=== PATIENT | male | born 1980 | race Two or more races ===

== ENCOUNTER 2017-08-05 14:36 | Emergency (ER) | payer SELFPAY ==
[~2017-08-05] VITALS: Ht 180.3 cm; Wt 90.7 kg
[2017-08-05 14:39] VITALS: BP 130/90
--- NOTE | 2017-08-05 14:56 | PHYS DOC ---
Adult General Chief Complaint Chief Complaint: ALCOHOL INTOXICATION HPI HPI Patient is a 36 year old M who presents with alcohol abuse. Patient had passed out on his 's couch drunk and woke up to her saying that he had a restraining order and neither she was going to call the police or an ambulance. At that time the patient shows an ambulance however has no medical complaints at this time. Patient is refusing all medical treatments. Patient is refusing lab work. Patient has no complaints. Patient does admit to drinking heavily. Patient states he does have alcohol problem. Patient did allow the tech to get a EKG. Patient states he will call a friend to come pick him up. At this time the patient has medical decision-making capacity allowing him to refuse medical care at this time. Review of Systems Review of Systems GEN: Denies fevers, chills, sweats HEENT: Denies blurred vision, sore throat CV: Denies chest pain RESP: Denies shortness of air, cough GI: Denies n/v/d NEURO: Denies confusion, dizziness MSK: Denies weakness, joint pain/swelling Allergies Allergies Allergies Coded Allergies Type Severity Reaction Last Updated Verified No Known Drug Allergies 08/05/17 No Physical Exam Physical Exam GEN.: No apparent distress. Alert and oriented. HEENT: Head is normocephalic, atraumatic NECK: Supple. LUNGS: CTAB. HEART: RRR, S1, S2 present. Peripheral pulses intact ABDOMEN: Soft, nontender. Positive bowel sounds. EXTREMITIES: Without any cyanosis. NEUROLOGIC: Normal speech, normal tone PSYCHIATRIC: Normal affect, normal mood. SKIN: No ulcerations Current Patient Data Vital Signs Vital Signs Date Time Temp Pulse Resp B/P (MAP) Pulse Ox O2 Delivery O2 Flow Rate FiO2 08/05/17 14:39 101 130/90 (103) 96 Room Air EKG EKG 1442: EKG shows normal sinus rhythm rate of 99 no STEMI[] Radiology/Procedures Radiology/Procedures [] Course & Med Decision Making Course & Med Decision Making Pertinent Labs and Imaging studies reviewed. (See chart for details) ED course: Patient was seen and examined emergency room patient is refusing lab work and has medical decision-making capacity 1754: After multiple times she cannot get a friend to come pick him up therefore he is taking a cab at this time the patient is a alert and oriented 3 and has medical decision making capacity MDM: After reviewing the chart, CC/HPI/PMH, physical exam, the patient has medical decision-making capacity and has a right to refuse treatment at this time. Patient was observed and her emergency room for approximately 3 hours while he was trying to find a ride. Patient was fed. Patient remained stable during the time in the emergency room. Patient was unable to find a ride therefore is calling for taxicab. Additional verbal discharge instructions were provided to the patient and that if symptoms get worse or any new symptoms arise that are worrisome to the patient he is to return to the emergency room immediately [] Dragon Disclaimer Dragon Disclaimer This electronic medical record was generated, in whole or in part, using a voice recognition dictation system. Departure Departure Impression: Primary Impression: Alcohol abuse Disposition: 01 HOME, SELF-CARE Condition: STABLE Patient Instructions: Alcohol Problems Additional Instructions: Please follow up with your family doctor next one to 2 days and return if symptoms increase JOVANNI CARRIZALES DO Aug 05, 2017 14:56
--- NOTE | 2017-08-05 15:54 | EKG ---
[facility] [address] [place] [address] Test Date: 2017-08-05 Test Time: 14:37:16 Pat Name: RENY IZAGUIRRE Department: Room: Gender: M Resource Room Teacher: : 1980 Requested By: JOVANNI CARRIZALES Order Number: [id number] Reading MD: Measurements Intervals [place] Rate: 99 P: 38 [place]: 132 QRS: 36 QRSD: 88 T: 26 QT: 340 QTc: 442 Interpretive Statements SINUS RHYTHM QRS(T) CONTOUR ABNORMALITY CANNOT RULE OUT ANTEROLATERAL MYOCARDIAL DAMAGE RI6.01 Unconfirmed report No previous ECG available for comparison
== END 2017-08-05 18:07 | disposition home or self-care (01) ==
LOC: ER 14:36
DX: F10.10 Alcohol abuse, uncomplicated (principal)
CPT/HCPCS: 93005; 99283-25

== ENCOUNTER 2020-07-13 18:40 | Inpatient (IN) | payer OTHER ==
[~2020-07-13] VITALS: Ht 175.3 cm; Wt 102.7 kg
[2020-07-13 18:35] VITALS: BP 155/105
[~2020-07-13 18:40] MED LIST: LORA-434 PO
--- NOTE | 2020-07-13 19:10 | PDOC1 ---
History and Physical Date of Admission Date of Admission DATE: 07/13/20 TIME: 19:10 Identification/Chief Complaint Chief Complaint seen in er in [facility] with acute alcohol withdrawal, has been on a 2 week binge, now decided to stop and seek treatment. HGB STABLE AT 12.9 AT TIME OF TRANSFER Past Medical History Past Medical History severe alcohol abuse x yrs, depression Cardiovascular: HTN Psych: Addictions Rheumatologic: No pertinent hx Family History Family History: Alcohol Abuse, Hypertension Social History Smoke: <1 pack per day ALCOHOL: heavy Drugs: Marijuana Current Medications Current Medications Active Scripts Active Ativan (Lorazepam) 1 Mg Tablet 1 Mg PO BID PRN Allergies Allergies: Coded Allergies: No Known Drug Allergies (Unverified , 08/05/17) ROS Review of System Constitutional: Denies fever or chills [] Eyes: Denies change in visual acuity, redness, or eye pain [] HENT: Denies nasal congestion or sore throat [] Respiratory: Denies cough or shortness of breath [] Cardiovascular: No additional information not addressed in HPI [] GI: Denies abdominal pain, nausea, vomiting, bloody stools or diarrhea [] : Denies dysuria or hematuria [] Musculoskeletal: Denies back pain or joint pain [] Integument: Denies rash or skin lesions [] Neurologic: Denies headache, focal weakness or sensory changes [] Endocrine: Denies polyuria or polydipsia [] 14 PT systems were reviewed and found to be within normal limits, except as documented General: YES: Fatigue, Malaise PSYCHOLOGICAL ROS: YES: Anxiety, Concentration difficultie Hematological and Lymphatic: YES: Bleeding Problems Gastrointestinal: Yes Nausea, Yes Vomiting Skin: No Dry Skin, No Eczema, No Hair Changes, No Lumps, No Mole Changes, No Mottling, No Nail Changes, No Pruritus, No Rash, No Skin Lesion Changes, No Other, No Acne Physical Exam Physical Exam Constitutional: Well developed, well nourished, mild acute distress, non-toxic appearance. [] HENT: Normocephalic, atraumatic, bilateral external ears normal, oropharynx m oist, no oral exudates, nose normal. [] Eyes: PERRLA, EOMI, conjunctiva normal, no discharge. [] Neck: Normal range of motion, no tenderness, supple, no stridor. [] Cardiovascular:Heart rate regular rhythm, no murmur [] Lungs & Thorax: Bilateral breath sounds clear to auscultation [] Abdomen: Bowel sounds normal, soft, no tenderness, no masses, no pulsatile masses. [] Skin: Warm, dry, no erythema, no rash. [] Back: No tenderness, no CVA tenderness. [] Extremities: No tenderness, no cyanosis, no clubbing, ROM intact, no edema. [] Neurologic: Alert and oriented x2, obvious intoxication and slurring some words General: Alert, Oriented X3, Cooperative, mild distress HEENT: Atraumatic Lungs: Clear to auscultation, Normal air movement Heart: RRR, no thrills Breasts: Not examined Abdomen: Normal bowel sounds, Soft, No tenderness Rectal Exam: not examined Extremities: No cyanosis, No edema Neuro: Normal speech, Normal tone, Sensation intact, Cranial nerves 3-12 NL VTE Prophylaxis Ordered VTE Prophylaxis Devices: Yes VTE Pharmacological Prophylaxi: Contraindicated Assessment/Plan Assessment/Plan Impression: ACUTE upper GI BLEED, prob janene-cortez tear Alcohol intoxication HX SEVERE ALCOHOL ABUSE morbid obesity plan ADMIT NPO GI CONSULT, NOTIFIED BY [facility] 07/13 PROTONIX DRIP H/H Q 6 HRS IV FLUID SUPPORT BANANA BAG DAILY SS CONSULT PSYCH CONSULT WA PROTOCOL Justicifation of Admission Dx: Justifications for Admission: Justification of Admission Dx: Yes Comments: ACUTE UPPER GI BLEEDING PARESH BOSWELL MD Jul 13, 2020 19:10
[2020-07-13] MEDS ORDERED: LORazepam 0.5 MG TABLET PO PRN (19:15)
[2020-07-13] MEDS ORDERED: DOCUSATE SODIUM 100 MG CAPSULE. PO PRN (19:15)
[2020-07-13] MEDS ORDERED: ONDANSETRON PF 4 MG/2 ML VIAL. IV PRN (19:15)
[2020-07-13] MEDS ORDERED: ALBUTEROL SULFATE 2.5 MG/3 ML NEBU. NEB PRN (19:15)
[2020-07-13] MEDS ORDERED: ACETAMINOPHEN 650 MG SUPP.RECT. PR PRN (19:15)
[2020-07-13] MEDS ORDERED: 0.9 % SODIUM CHLORIDE 10 ML DISP.SYRIN. IV PRN (19:15)
[2020-07-13] MEDS ORDERED: HALOPERIDOL LACTATE 5 MG/ML VIAL. IVP PRN (19:30)
[2020-07-13] MEDS ORDERED: diphenhydrAMINE 50 MG/ML VIAL IVP PRN (19:30)
[2020-07-13] MEDS: IV NORMAL SALINE 1000ML BAG 1,000 ML IV SCH (19:38)
[2020-07-13] MEDS: PANTOPRAZOLE SODIUM IV DRIP 80 MG in IV NORMAL SALINE 100ML 100 ML IV SCH (19:38)
[2020-07-13] MEDS ORDERED: MULTIVIT INFUSN,ADULT 4,VIT K 10 ML, THIAMINE INJ 100 MG, FOLIC ACID INJ 1 MG in IV NOR... IV ONE (20:00)
--- NOTE | 2020-07-13 20:00 | NUR ---
PT ADMITTED FOR GI BLEED, PT APPEARS RESTLESS, ANXIOUS WITH SLIGHT TREMORS. DR BOSWELL CALLED FOR ADMISSION ORDERS. ASSESSMENT COMPLETE, ADMISSION PACKET GIVEN, ORIENTED TO UNIT AND POC WILL CONT TO MONITOR PT SAFETY AND STATUS. PMRN
[2020-07-13 23:00] VITALS: BP 165/86
[2020-07-14 01:00] LABS: BASO % 0 % (0-3); EOS % 0 % (0-3); HEMATOCRIT 34.1 % (39.0-53.0); HEMOGLOBIN 11.7 g/dL (13.0-17.5); LYMPH # 1.6 x10^3/uL (1.0-4.8); LYMPH % 22 % (24-48); MEAN CORPUSCULAR HEMOGLOBIN 29 pg (25-35); MEAN CORPUSCULAR HGB CONC 34 g/dL (31-37); MEAN CORPUSCULAR VOLUME 83 fL (79-100); MONO # 0.3 x10^3/uL (0.0-1.1); MONO % 4 % (0-9); NEUT # 5.3 x10^3/uL (1.8-7.7); NEUT % 74 % (31-73); PLATELET COUNT 97 x10^3/uL (140-400); RED BLOOD COUNT 4.09 x10^6/uL (4.30-5.70); RED CELL DISTRIBUTION WIDTH 14.9 % (11.5-14.5); WHITE BLOOD COUNT 7.1 x10^3/uL (4.0-11.0)
[2020-07-14 01:57] LABS: BARBITURATES NEG (NEG); BENZODIAZEPINES NEG (NEG); CANNABINOIDS NEG (NEG); COCAINE NEG (NEG); METHADONE NEG (NEG); OPIATES NEG (NEG); PHENCYCLIDINE NEG (NEG)
[2020-07-14 02:01] LABS: AMPHETAMINE/METHAMPHETAMINE NEG (NEG)
[2020-07-14] MEDS ORDERED: DIGOXIN IV 500 MCG/2 ML AMPUL. IV ONE (02:45)
[2020-07-14] MEDS: IV NORMAL SALINE 1000ML BAG 1,000 ML IV SCH ×4 (02:50→22:17)
[2020-07-14] MEDS: PANTOPRAZOLE SODIUM IV DRIP 80 MG in IV NORMAL SALINE 100ML 100 ML IV SCH ×3 (02:56→22:17)
[2020-07-14 03:00] VITALS: BP 156/84
[2020-07-14 07:00] VITALS: BP 154/93
[2020-07-14 07:54] LABS: BASO % 1 % (0-3); EOS % 0 % (0-3); HEMATOCRIT 33.7 % (39.0-53.0); HEMOGLOBIN 11.5 g/dL (13.0-17.5); LYMPH # 1.3 x10^3/uL (1.0-4.8); LYMPH % 24 % (24-48); MEAN CORPUSCULAR HEMOGLOBIN 28 pg (25-35); MEAN CORPUSCULAR HGB CONC 34 g/dL (31-37); MEAN CORPUSCULAR VOLUME 83 fL (79-100); MONO # 0.2 x10^3/uL (0.0-1.1); MONO % 4 % (0-9); NEUT # 3.9 x10^3/uL (1.8-7.7); NEUT % 71 % (31-73); PLATELET COUNT 87 x10^3/uL (140-400); RED BLOOD COUNT 4.06 x10^6/uL (4.30-5.70); RED CELL DISTRIBUTION WIDTH 14.7 % (11.5-14.5); WHITE BLOOD COUNT 5.5 x10^3/uL (4.0-11.0)
[2020-07-14 08:11] LABS: ALBUMIN 3.1 g/dL (3.4-5.0); ALBUMIN/GLOBULIN RATIO 0.9 (1.0-1.7); CALCIUM 8.1 mg/dL (8.5-10.1); CREATININE 1.3 mg/dL (0.7-1.3); GFR 62.1; TOTAL BILIRUBIN 1.2 mg/dL (0.2-1.0); TOTAL PROTEIN 6.4 g/dL (6.4-8.2)
[2020-07-14 08:17] LABS: POTASSIUM 2.8 mmol/L (3.5-5.1)
[2020-07-14] MEDS: POTASSIUM CHLORIDE 10MEQ 100 ML IV SCH ×4 (08:58→14:26)
--- NOTE | 2020-07-14 09:45 | PDOC2 ---
GI CONSULT Date of Service: DATE: 07/14/20 TIME: 09:45 Reason For Consult: acute UGIB HPI: HPI: 39 y/o male sent from [facility] ER, discussed w/ ER physician yesterday. Sick for a couple days w/ mid/right abd pain and n/v w/ dark reddish emesis x 1. Says brought on by drinking a lot of alcohol. Denies reflux/heartburn, dysphagia, diarrhea, constipation, hematochezia, melena, weight loss. No 'scopes in past. No GB, liver, pancreas, or PUD history. At [facility]: Hgb 12.9, plt 132, INR 1, BUN 9, Cr 1.5, bili 1.1, AST 145, ALT 88, Alk Phos 77, lipase 225, ETOH 24. CT w/ fatty liver and possible colitis/enteritis. PMH: PMH: denies FH: Family History: No pertinent hx (denies GI cancers) Social History: Smoke: No ALCOHOL: heavy ROS: GEN: Denies fevers, chills, sweats HEENT: Denies blurred vision, sore throat CV: Denies chest pain RESP: Denies shortness of air, cough GI: Per HPI : Denies hematuria, dysuria ENDO: Denies weight changes NEURO: Denies confusion, dizziness MSK: Denies weakness, joint pain/swelling SKIN: Denies jaundice, pruritus Vitals: Vitals: Vital Signs Date Time Temp Pulse Resp B/P (MAP) Pulse Ox O2 Delivery O2 Flow Rate FiO2 07/14/20 07:34 99 Room Air 07/14/20 07:00 98.0 88 18 154/93 (113) 98.0 Labs: Labs: Laboratory Tests Test 07/14/20 00:05 07/14/20 00:26 07/14/20 06:35 White Blood Count 7.1 x10^3/uL (4.0-11.0) 5.5 x10^3/uL (4.0-11.0) Red Blood Count 4.09 x10^6/uL (4.30-5.70) 4.06 x10^6/uL (4.30-5.70) Hemoglobin 11.7 g/dL (13.0-17.5) 11.5 g/dL (13.0-17.5) Hematocrit 34.1 % (39.0-53.0) 33.7 % (39.0-53.0) Mean Corpuscular Volume 83 fL (79-100) 83 fL (79-100) Mean Corpuscular Hemoglobin 29 pg (25-35) 28 pg (25-35) Mean Corpuscular Hemoglobin Concent 34 g/dL (31-37) 34 g/dL (31-37) Red Cell Distribution Width 14.9 % (11.5-14.5) 14.7 % (11.5-14.5) Platelet Count 97 x10^3/uL (140-400) 87 x10^3/uL (140-400) Neutrophils (%) (Auto) 74 % (31-73) 71 % (31-73) Lymphocytes (%) (Auto) 22 % (24-48) 24 % (24-48) Monocytes (%) (Auto) 4 % (0-9) 4 % (0-9) Eosinophils (%) (Auto) 0 % (0-3) 0 % (0-3) Basophils (%) (Auto) 0 % (0-3) 1 % (0-3) Neutrophils # (Auto) 5.3 x10^3/uL (1.8-7.7) 3.9 x10^3/uL (1.8-7.7) Lymphocytes # (Auto) 1.6 x10^3/uL (1.0-4.8) 1.3 x10^3/uL (1.0-4.8) Monocytes # (Auto) 0.3 x10^3/uL (0.0-1.1) 0.2 x10^3/uL (0.0-1.1) Eosinophils # (Auto) 0.0 x10^3/uL (0.0-0.7) 0.0 x10^3/uL (0.0-0.7) Basophils # (Auto) 0.0 x10^3/uL (0.0-0.2) 0.0 x10^3/uL (0.0-0.2) Urine Opiates Screen Neg (NEG) Urine Methadone Screen Neg (NEG) Urine Barbiturates Neg (NEG) Urine Phencyclidine Screen Neg (NEG) Urine Amphetamine/Methamphetamine Neg (NEG) Urine Benzodiazepines Screen Neg (NEG) Urine Cocaine Screen Neg (NEG) Urine Cannabinoids Screen Neg (NEG) Urine Ethyl Alcohol Neg (NEG) Sodium Level 139 mmol/L (136-145) Potassium Level 2.8 mmol/L (3.5-5.1) Chloride Level 101 mmol/L (98-107) Carbon Dioxide Level 23 mmol/L (21-32) Anion Gap 15 (6-14) Blood Urea Nitrogen 9 mg/dL (8-26) Creatinine 1.3 mg/dL (0.7-1.3) Estimated GFR (Cockcroft-Gault) 62.1 BUN/Creatinine Ratio 7 (6-20) Glucose Level 77 mg/dL (70-99) Calcium Level 8.1 mg/dL (8.5-10.1) Total Bilirubin 1.2 mg/dL (0.2-1.0) Aspartate Amino Transf (AST/SGOT) 122 U/L (15-37) Alanine Aminotransferase (ALT/SGPT) 85 U/L (16-63) Alkaline Phosphatase 57 U/L (46-116) Total Protein 6.4 g/dL (6.4-8.2) Albumin 3.1 g/dL (3.4-5.0) Albumin/Globulin Ratio 0.9 (1.0-1.7) Allergies: Coded Allergies: No Known Drug Allergies (Unverified , 08/05/17) Medications: Current Medications Medications (Trade) Dose Ordered Sig/Cammie Route PRN Reason Start Time Stop Time Status Last Admin Dose Admin Pantoprazole Sodium 80 mg/ Sodium Chloride 100 ml @ 10 mls/hr Q10H IV 07/13/20 19:30 07/16/20 19:29 07/14/20 02:56 Sodium Chloride 1,000 ml @ 150 mls/hr Q6H40M IV 07/13/20 19:15 07/14/20 09:05 Multivitamins 10 ml/Thiamine HCl 100 mg/Folic Acid 1 mg/Sodium Chloride 1,011.2 ml @ 125 mls/ hr 1X ONCE IV 07/13/20 20:00 07/14/20 04:05 DC 07/13/20 22:00 Lorazepam (Ativan Inj) 2 mg PRN Q1HR PRN IV For CIWA 8-14 07/13/20 19:30 07/14/20 00:41 Potassium Chloride/Water 100 ml @ 100 mls/hr Q1H IV 07/14/20 09:00 07/14/20 12:59 07/14/20 08:58 Imaging: Imaging: - PE: GEN: NAD HEENT: Atraumatic, PERRL LUNGS: CTAB HEART: RRR when I saw, tachycardia noted in chart ABD: quiet BS, right periumbilical discomfort EXTREMITY: No edema SKIN: No rashes, no jaundice NEURO/PSYCH: A & O 3 A/P: A/P: Abd pain, n/v/hematemesis Alcohol abuse Anemia, thrombocytopenia, hypokalemia, GENE, elevated LFTs CRC screen - average risk -- PPI. Cautiously try clears today. R/o COVID for possible EGD tomorrow. Withdrawal precautions per primary. ALE SALCEDO Jul 14, 2020 09:45
[2020-07-14 11:00] VITALS: BP 157/95
--- NOTE | 2020-07-14 11:41 | PDOC ---
[employer] PROGRESS NOTE Date of Service DOS: DATE: 07/14/20 TIME: 11:23 Chief Complaint Chief Complaint Severe alcohol abuse Abdominal pain, n/v/hematemesis Anemia Thrombocytopenia Hypokalemia GENE Hypertension Depression Marijuana and tobacco use History of Present Illness History of Present Illness 07/14/2020 Patient seen and examined, he was transferred from [facility] yesterday Patient is alert and oriented without asterixis Patient c/o abd pain Hbg stable at 12.9 COVID-19 pending for EGD per GI Discussed with RN Chart reviewed Vitals/I&O Vitals/I&O: Vital Signs Date Time Temp Pulse Resp B/P (MAP) Pulse Ox O2 Delivery O2 Flow Rate FiO2 07/14/20 11:00 98.5 98 18 157/95 (115) 100 Room Air 98.5 I & O 07/13/20 07/13/20 07/14/20 15:00 23:00 07:00 Intake Total 2634.21 ml Output Total 600 ml Balance 2034.21 ml Physical Exam General: Alert, Oriented X3, Cooperative, mild distress Heart: Regular rate, Normal S1, Normal S2 Lungs: Clear Abdomen: Normal bowel sounds, Soft, Other (generalized abd pain ) Extremities: No clubbing, No cyanosis, No edema Skin: No rashes, No breakdown, No significant lesion Labs Labs: Laboratory Tests Test 07/14/20 00:05 07/14/20 00:26 07/14/20 06:35 White Blood Count 7.1 x10^3/uL (4.0-11.0) 5.5 x10^3/uL (4.0-11.0) Red Blood Count 4.09 x10^6/uL (4.30-5.70) 4.06 x10^6/uL (4.30-5.70) Hemoglobin 11.7 g/dL (13.0-17.5) 11.5 g/dL (13.0-17.5) Hematocrit 34.1 % (39.0-53.0) 33.7 % (39.0-53.0) Mean Corpuscular Volume 83 fL (79-100) 83 fL (79-100) Mean Corpuscular Hemoglobin 29 pg (25-35) 28 pg (25-35) Mean Corpuscular Hemoglobin Concent 34 g/dL (31-37) 34 g/dL (31-37) Red Cell Distribution Width 14.9 % (11.5-14.5) 14.7 % (11.5-14.5) Platelet Count 97 x10^3/uL (140-400) 87 x10^3/uL (140-400) Neutrophils (%) (Auto) 74 % (31-73) 71 % (31-73) Lymphocytes (%) (Auto) 22 % (24-48) 24 % (24-48) Monocytes (%) (Auto) 4 % (0-9) 4 % (0-9) Eosinophils (%) (Auto) 0 % (0-3) 0 % (0-3) Basophils (%) (Auto) 0 % (0-3) 1 % (0-3) Neutrophils # (Auto) 5.3 x10^3/uL (1.8-7.7) 3.9 x10^3/uL (1.8-7.7) Lymphocytes # (Auto) 1.6 x10^3/uL (1.0-4.8) 1.3 x10^3/uL (1.0-4.8) Monocytes # (Auto) 0.3 x10^3/uL (0.0-1.1) 0.2 x10^3/uL (0.0-1.1) Eosinophils # (Auto) 0.0 x10^3/uL (0.0-0.7) 0.0 x10^3/uL (0.0-0.7) Basophils # (Auto) 0.0 x10^3/uL (0.0-0.2) 0.0 x10^3/uL (0.0-0.2) Urine Opiates Screen Neg (NEG) Urine Methadone Screen Neg (NEG) Urine Barbiturates Neg (NEG) Urine Phencyclidine Screen Neg (NEG) Urine Amphetamine/Methamphetamine Neg (NEG) Urine Benzodiazepines Screen Neg (NEG) Urine Cocaine Screen Neg (NEG) Urine Cannabinoids Screen Neg (NEG) Urine Ethyl Alcohol Neg (NEG) Sodium Level 139 mmol/L (136-145) Potassium Level 2.8 mmol/L (3.5-5.1) Chloride Level 101 mmol/L (98-107) Carbon Dioxide Level 23 mmol/L (21-32) Anion Gap 15 (6-14) Blood Urea Nitrogen 9 mg/dL (8-26) Creatinine 1.3 mg/dL (0.7-1.3) Estimated GFR (Cockcroft-Gault) 62.1 BUN/Creatinine Ratio 7 (6-20) Glucose Level 77 mg/dL (70-99) Calcium Level 8.1 mg/dL (8.5-10.1) Total Bilirubin 1.2 mg/dL (0.2-1.0) Aspartate Amino Transf (AST/SGOT) 122 U/L (15-37) Alanine Aminotransferase (ALT/SGPT) 85 U/L (16-63) Alkaline Phosphatase 57 U/L (46-116) Total Protein 6.4 g/dL (6.4-8.2) Albumin 3.1 g/dL (3.4-5.0) Albumin/Globulin Ratio 0.9 (1.0-1.7) Assessment and Plan Assessmemt and Plan ASSESSMENT Severe alcohol abuse Abdominal pain, n/v/hematemesis Anemia Thrombocytopenia Hypokalemia GENE Hypertension Depression Marijuana and tobacco use PLAN Advance to clear liquids today per GI Continue CIWA protocol Continue Protonix drip Continue IV Fluids Acetaminophen for pain PRN Banana bag daily Awaiting SS and Psych consults Trend hemoglobin Trend potassium R/o COVID for possible EGD tomorrow per GI DVT prophylaxis Full Code Appreciate subspecialty input Comment Review of Relevant I have reviewed the following items nicolette (where applicable) has been applied. Medications: Current Medications Medications (Trade) Dose Ordered Sig/Cammie Route PRN Reason Start Time Stop Time Status Last Admin Dose Admin Pantoprazole Sodium 80 mg/ Sodium Chloride 100 ml @ 10 mls/hr Q10H IV 07/13/20 19:30 07/16/20 19:29 07/14/20 02:56 Sodium Chloride 1,000 ml @ 150 mls/hr Q6H40M IV 07/13/20 19:15 07/14/20 09:05 Multivitamins 10 ml/Thiamine HCl 100 mg/Folic Acid 1 mg/Sodium Chloride 1,011.2 ml @ 125 mls/ hr 1X ONCE IV 07/13/20 20:00 07/14/20 04:05 DC 07/13/20 22:00 Lorazepam (Ativan Inj) 2 mg PRN Q1HR PRN IV For CIWA 8-14 07/13/20 19:30 07/14/20 00:41 Potassium Chloride/Water 100 ml @ 100 mls/hr Q1H IV 07/14/20 09:00 07/14/20 12:59 07/14/20 11:13 Justicifation of Admission Dx: Justifications for Admission: Justification of Admission Dx: Yes SIGIFREDO NARANJO III DO Jul 14, 2020 11:41
--- NOTE | 2020-07-14 11:52 | NUR ---
SS following for discharge planning. SS reviewed pt chart and discussed with pt RN. Pt is from home with spouse and is currently on room air. PAT team referral made for ETOH. Shahida from PAT team coming to meet with pt. SS will continue to follow for discharge planning.
[2020-07-14] MEDS: THIAMINE 100 MG TABLET. PO SCH (12:27)
[2020-07-14] MEDS: FOLIC ACID 1 MG TABLET. PO SCH (12:28)
[2020-07-14] MEDS: METOPROLOL TARTRATE 5 MG/5 ML VIAL. IVP PRN (14:26)
[2020-07-14] MEDS ORDERED: ACETAMINOPHEN 325 MG TABLET. PO PRN (14:45)
[2020-07-14 14:57] VITALS: BP 191/99
--- NOTE | 2020-07-14 15:01 | PDOC1 ---
History & Psych Evaluation Date of Service: DOS: DATE: 07/14/20 TIME: 15:00 Source: Source: Caregiver, Chart review, Patient Identification: Identification 39-year-old young gentleman with history of depression, anxiety, and alcohol abuse Chief Complaint: Chief Complaint Depression, anxiety, and alcohol abuse. Alcohol intoxication/withdrawal History of Present Illness: HPI: He is a 39-year-old young gentleman with history of depression anxiety and alcoh ol abuse admitted with alcohol withdrawal. He is reportedly kicked out by his as he has not been able to maintain sobriety. Reportedly having lots of depression and anxiety. Upon interview he appears cooperative and interactive. However depressed and in distress because of his psychosocial circumstances. States he has been struggling with depression anxiety and alcohol abuse off and on for a long time. He states he drinks usually binge on alcohol and then gets cold turkey and maintain sobriety for a month and then relapse. He has been binging on alcohol for the last 2 weeks. States, because of his social problems he decided to seek help to quit his alcohol drinking. He is endorsing depression reportedly sad mood, anhedonia, social isolation, and concentration deficit. States, he has severe insomnia and gets help of alcohol to sleep. He does have history of anxiety reportedly bad. States, when his depression gets worse his anxiety gets high. Depression is rated as 7/10. Anxiety is rated as 9/10. States, he relapsed on alcohol recently after being sober for 6 months. He has history of complicated alcohol withdrawals including DTs and seizures. Longest period of sobriety was for 6 years at that point he compensated his alcohol with marijuana. Now he drinks alcohol but denies using marijuana. Denies auditory or visual hallucinations. No evidence of payton or hypomania. Mood is sad and depressed. Denies suicidal or homicidal thoughts. Past Medical History: Depression Alcohol abuse Hypertension Family History: Family history is significant for depression anxiety and alcohol abuse. Social History: Social History: He is expelled by his because of not maintaining sobriety. He is . Denies legal issues. Current Medications: Current Medications Current Medications Medications (Trade) Dose Ordered Sig/Cammie Start Time Stop Time Status Last Admin Dose Admin Acetaminophen (Tylenol Supp) 650 mg PRN Q4HRS PRN 07/13/20 19:15 Acetaminophen (Tylenol) 650 mg PRN Q6HRS PRN 07/14/20 14:45 8/13/20 14:51 650 MG Albuterol Sulfate (Ventolin Neb Soln) 2.5 mg PRN Q4HRS PRN 07/13/20 19:15 Clonidine HCl (Catapres) 0.1 mg PRN Q1HR PRN 07/13/20 19:30 Digoxin (Lanoxin) 500 mcg 1X ONCE 07/14/20 02:45 07/14/20 02:42 DC Diphenhydramine HCl (Benadryl) 25 mg PRN Q15MIN PRN 07/13/20 19:30 Docusate Sodium (Colace) 100 mg PRN BID PRN 07/13/20 19:15 Folic Acid (Folic Acid) 1 mg DAILY 07/14/20 09:00 07/14/20 12:28 1 MG Haloperidol Lactate (Haldol Inj) 5 mg PRN Q4HRS PRN 07/13/20 19:30 Lorazepam (Ativan Inj) 4 mg PRN Q15MIN PRN 07/13/20 19:30 UNV Lorazepam (Ativan) 1 mg PRN BID PRN 07/13/20 22:30 Metoprolol Tartrate (Lopressor Vial) 5 mg PRN Q20MIN PRN 07/13/20 22:30 07/14/20 14:26 5 MG Multivitamins 10 ml/Thiamine HCl 100 mg/Folic Acid 1 mg/Sodium Chloride 1,011.2 ml @ 125 mls/ hr 1X ONCE 07/13/20 20:00 07/14/20 04:05 DC 07/13/20 22:00 125 MLS/HR Ondansetron HCl (Zofran) 4 mg PRN Q4HRS PRN 07/13/20 19:15 Pantoprazole Sodium 80 mg/ Sodium Chloride 100 ml @ 10 mls/hr Q10H 07/13/20 19:30 07/16/20 19:29 07/14/20 14:26 10 MLS/HR Potassium Chloride/Water 100 ml @ 100 mls/hr Q1H 07/14/20 09:00 07/14/20 12:59 DC 07/14/20 14:26 100 MLS/HR Sodium Chloride 1,000 ml @ 150 mls/hr Q6H40M 07/13/20 19:15 07/14/20 09:05 150 MLS/HR Sodium Chloride (Normal Saline Flush) 3 ml QSHIFT PRN 07/13/20 19:15 Thiamine Mononitrate (Vitamin B-1) 100 mg DAILY 07/14/20 09:00 07/14/20 12:27 100 MG Thiamine HCl 100 mg/Dextrose 51 ml @ 100 mls/hr DAILY 07/18/20 09:00 07/22/20 09:31 UNV Allergies: Allergies: Coded Allergies: No Known Drug Allergies (Unverified , 08/05/17) Mental Status Examination: Mental Status Examination Young gentleman appears as a stated age, fairly groomed fairly nourished Cooperative but anxious and in distress Fully alert and oriented Thought processes mostly goal-directed Denies auditory or visual hallucinations No abnormal perception noted Denies suicidal or homicidal thoughts Mood is depressed and anxious Affect is dysthymic Insight is limited judgment is limited impulse control is fair. Attention span and concentration gets distracted easily Recent and remote memory intact ROS: 14 point review of system is otherwise negative except for stated in H&P and above Physical Exam: Refer to Physician's note. 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 MSK: No EPS, TDK, or abnormal involuntary movements Vitals: Vitals Vital Signs Date Time Temp Pulse Resp B/P (MAP) Pulse Ox O2 Delivery O2 Flow Rate FiO2 07/14/20 14:57 98.5 94 18 191/99 (129) 97 Room Air 98.5 Labs: Labs Laboratory Tests Test 07/14/20 00:05 07/14/20 00:26 07/14/20 06:35 07/14/20 11:15 White Blood Count 7.1 x10^3/uL (4.0-11.0) 5.5 x10^3/uL (4.0-11.0) Red Blood Count 4.09 x10^6/uL (4.30-5.70) 4.06 x10^6/uL (4.30-5.70) Hemoglobin 11.7 g/dL (13.0-17.5) 11.5 g/dL (13.0-17.5) Hematocrit 34.1 % (39.0-53.0) 33.7 % (39.0-53.0) Mean Corpuscular Volume 83 fL (79-100) 83 fL (79-100) Mean Corpuscular Hemoglobin 29 pg (25-35) 28 pg (25-35) Mean Corpuscular Hemoglobin Concent 34 g/dL (31-37) 34 g/dL (31-37) Red Cell Distribution Width 14.9 % (11.5-14.5) 14.7 % (11.5-14.5) Platelet Count 97 x10^3/uL (140-400) 87 x10^3/uL (140-400) Neutrophils (%) (Auto) 74 % (31-73) 71 % (31-73) Lymphocytes (%) (Auto) 22 % (24-48) 24 % (24-48) Monocytes (%) (Auto) 4 % (0-9) 4 % (0-9) Eosinophils (%) (Auto) 0 % (0-3) 0 % (0-3) Basophils (%) (Auto) 0 % (0-3) 1 % (0-3) Neutrophils # (Auto) 5.3 x10^3/uL (1.8-7.7) 3.9 x10^3/uL (1.8-7.7) Lymphocytes # (Auto) 1.6 x10^3/uL (1.0-4.8) 1.3 x10^3/uL (1.0-4.8) Monocytes # (Auto) 0.3 x10^3/uL (0.0-1.1) 0.2 x10^3/uL (0.0-1.1) Eosinophils # (Auto) 0.0 x10^3/uL (0.0-0.7) 0.0 x10^3/uL (0.0-0.7) Basophils # (Auto) 0.0 x10^3/uL (0.0-0.2) 0.0 x10^3/uL (0.0-0.2) Urine Opiates Screen Neg (NEG) Urine Methadone Screen Neg (NEG) Urine Barbiturates Neg (NEG) Urine Phencyclidine Screen Neg (NEG) Urine Amphetamine/Methamphetamine Neg (NEG) Urine Benzodiazepines Screen Neg (NEG) Urine Cocaine Screen Neg (NEG) Urine Cannabinoids Screen Neg (NEG) Urine Ethyl Alcohol Neg (NEG) Sodium Level 139 mmol/L (136-145) Potassium Level 2.8 mmol/L (3.5-5.1) Chloride Level 101 mmol/L (98-107) Carbon Dioxide Level 23 mmol/L (21-32) Anion Gap 15 (6-14) Blood Urea Nitrogen 9 mg/dL (8-26) Creatinine 1.3 mg/dL (0.7-1.3) Estimated GFR (Cockcroft-Gault) 62.1 BUN/Creatinine Ratio 7 (6-20) Glucose Level 77 mg/dL (70-99) Calcium Level 8.1 mg/dL (8.5-10.1) Total Bilirubin 1.2 mg/dL (0.2-1.0) Aspartate Amino Transf (AST/SGOT) 122 U/L (15-37) Alanine Aminotransferase (ALT/SGPT) 85 U/L (16-63) Alkaline Phosphatase 57 U/L (46-116) Total Protein 6.4 g/dL (6.4-8.2) Albumin 3.1 g/dL (3.4-5.0) Albumin/Globulin Ratio 0.9 (1.0-1.7) SARS-CoV-2 Antigen (Rapid) Negative (NEGATIVE) Laboratory Tests Test 07/14/20 00:05 07/14/20 00:26 07/14/20 06:35 07/14/20 11:15 White Blood Count 7.1 x10^3/uL (4.0-11.0) 5.5 x10^3/uL (4.0-11.0) Red Blood Count 4.09 x10^6/uL (4.30-5.70) 4.06 x10^6/uL (4.30-5.70) Hemoglobin 11.7 g/dL (13.0-17.5) 11.5 g/dL (13.0-17.5) Hematocrit 34.1 % (39.0-53.0) 33.7 % (39.0-53.0) Mean Corpuscular Volume 83 fL (79-100) 83 fL (79-100) Mean Corpuscular Hemoglobin 29 pg (25-35) 28 pg (25-35) Mean Corpuscular Hemoglobin Concent 34 g/dL (31-37) 34 g/dL (31-37) Red Cell Distribution Width 14.9 % (11.5-14.5) 14.7 % (11.5-14.5) Platelet Count 97 x10^3/uL (140-400) 87 x10^3/uL (140-400) Neutrophils (%) (Auto) 74 % (31-73) 71 % (31-73) Lymphocytes (%) (Auto) 22 % (24-48) 24 % (24-48) Monocytes (%) (Auto) 4 % (0-9) 4 % (0-9) Eosinophils (%) (Auto) 0 % (0-3) 0 % (0-3) Basophils (%) (Auto) 0 % (0-3) 1 % (0-3) Neutrophils # (Auto) 5.3 x10^3/uL (1.8-7.7) 3.9 x10^3/uL (1.8-7.7) Lymphocytes # (Auto) 1.6 x10^3/uL (1.0-4.8) 1.3 x10^3/uL (1.0-4.8) Monocytes # (Auto) 0.3 x10^3/uL (0.0-1.1) 0.2 x10^3/uL (0.0-1.1) Eosinophils # (Auto) 0.0 x10^3/uL (0.0-0.7) 0.0 x10^3/uL (0.0-0.7) Basophils # (Auto) 0.0 x10^3/uL (0.0-0.2) 0.0 x10^3/uL (0.0-0.2) Urine Opiates Screen Neg (NEG) Urine Methadone Screen Neg (NEG) Urine Barbiturates Neg (NEG) Urine Phencyclidine Screen Neg (NEG) Urine Amphetamine/Methamphetamine Neg (NEG) Urine Benzodiazepines Screen Neg (NEG) Urine Cocaine Screen Neg (NEG) Urine Cannabinoids Screen Neg (NEG) Urine Ethyl Alcohol Neg (NEG) Sodium Level 139 mmol/L (136-145) Potassium Level 2.8 mmol/L (3.5-5.1) Chloride Level 101 mmol/L (98-107) Carbon Dioxide Level 23 mmol/L (21-32) Anion Gap 15 (6-14) Blood Urea Nitrogen 9 mg/dL (8-26) Creatinine 1.3 mg/dL (0.7-1.3) Estimated GFR (Cockcroft-Gault) 62.1 BUN/Creatinine Ratio 7 (6-20) Glucose Level 77 mg/dL (70-99) Calcium Level 8.1 mg/dL (8.5-10.1) Total Bilirubin 1.2 mg/dL (0.2-1.0) Aspartate Amino Transf (AST/SGOT) 122 U/L (15-37) Alanine Aminotransferase (ALT/SGPT) 85 U/L (16-63) Alkaline Phosphatase 57 U/L (46-116) Total Protein 6.4 g/dL (6.4-8.2) Albumin 3.1 g/dL (3.4-5.0) Albumin/Globulin Ratio 0.9 (1.0-1.7) SARS-CoV-2 Antigen (Rapid) Negative (NEGATIVE) Diagnosis: Diagnosis: Major depressive disorder, recurrent, severe moderate Generalized anxiety disorder Alcohol withdrawal in context of alcohol use disorder Alcohol use disorder, recurrent, moderate to severe Assessment: He is a young gentleman struggling with depression and anxiety in context of major depressive disorder and generalized anxiety disorder. His mental health issues appear to be complicated by his consistent alcohol use. However, he has genetic predisposition to have alcohol use problems, depression and anxiety. He is in agreement to restart medications and interested in alcohol rehab. Plan: Start Zoloft 50 mg once daily for depression and anxiety. Start gabapentin 300 mg 3 times a day to prevent complicated alcohol withdrawals and alcohol craving Strongly recommending alcohol rehab and requesting transition social worker for inpatient alcohol rehab or RADAC screen. Educated regarding adverse effects of alcohol on mental and physical health. Psychoeducation provided Risk benefits, alternatives of the treatment are discussed. He is in agreement with plan and voiced understanding. Adverse drug reaction of the medications are also discussed including black box warning. Monitor for symptomatology, safety, and adverse drug reaction. Will adjust medications accordingly. Thank you for involving in patient care. ALPESH ESCALONA MD Jul 14, 2020 15:00
[2020-07-14 19:00] VITALS: BP 184/103
[2020-07-14 19:10] LABS: BASO % 1 % (0-3); EOS % 1 % (0-3); HEMATOCRIT 32.5 % (39.0-53.0); HEMOGLOBIN 11.2 g/dL (13.0-17.5); LYMPH # 1.3 x10^3/uL (1.0-4.8); LYMPH % 26 % (24-48); MEAN CORPUSCULAR HEMOGLOBIN 29 pg (25-35); MEAN CORPUSCULAR HGB CONC 35 g/dL (31-37); MEAN CORPUSCULAR VOLUME 83 fL (79-100); MONO # 0.2 x10^3/uL (0.0-1.1); MONO % 4 % (0-9); NEUT # 3.5 x10^3/uL (1.8-7.7); NEUT % 69 % (31-73); PLATELET COUNT 81 x10^3/uL (140-400); RED CELL DISTRIBUTION WIDTH 14.7 % (11.5-14.5)
[2020-07-14] MEDS: GABAPENTIN 300 MG CAPSULE. PO SCH (20:01)
[2020-07-14] MEDS: cloNIDine HCL 0.1 MG TABLET PO PRN ×2 (20:02→23:28)
[2020-07-14 23:00] VITALS: BP 176/94
[2020-07-15] VITALS (7 sets, daily range): BP systolic 158–199; BP diastolic 94–112
[2020-07-15 05:05] LABS: BASO % 1 % (0-3); EOS # 0.1 x10^3/uL (0.0-0.7); EOS % 2 % (0-3); HEMATOCRIT 31.8 % (39.0-53.0); HEMOGLOBIN 11.2 g/dL (13.0-17.5); LYMPH # 1.5 x10^3/uL (1.0-4.8); LYMPH % 34 % (24-48); MEAN CORPUSCULAR HEMOGLOBIN 29 pg (25-35); MEAN CORPUSCULAR HGB CONC 35 g/dL (31-37); MEAN CORPUSCULAR VOLUME 82 fL (79-100); MONO # 0.2 x10^3/uL (0.0-1.1); MONO % 4 % (0-9); NEUT # 2.6 x10^3/uL (1.8-7.7); NEUT % 61 % (31-73); PLATELET COUNT 70 x10^3/uL (140-400); RED BLOOD COUNT 3.87 x10^6/uL (4.30-5.70); RED CELL DISTRIBUTION WIDTH 14.7 % (11.5-14.5); WHITE BLOOD COUNT 4.4 x10^3/uL (4.0-11.0)
[2020-07-15] MEDS: IV NORMAL SALINE 1000ML BAG 1,000 ML IV SCH ×2 (05:43→11:15)
[2020-07-15] MEDS ORDERED: IV RINGERS,LACTATED 1000ML 1,000 ML IV SCH (07:00)
[2020-07-15] MEDS: METOPROLOL TARTRATE 5 MG/5 ML VIAL. IVP PRN ×2 (09:14→23:13)
[2020-07-15] MEDS ORDERED: PROPOFOL 10 MG/ML (20ML) VIAL. IV ONE (09:31)
--- NOTE | 2020-07-15 09:52 | PDOC4 ---
Operative Note Operative Note EGD Meds propofol per anesthesia Pre-op dx Hematemesis/acute blood loss anemia Post-op dx erosive gastritis secondary to alcohol Plan advance diet po meds AA senior care. MARILU CLAROS MD Jul 15, 2020 09:51
[2020-07-15] MEDS: SERTRALINE 50 MG TABLET. PO SCH (10:28)
[2020-07-15] MEDS: THIAMINE 100 MG TABLET. PO SCH (10:28)
[2020-07-15] MEDS: PANTOPRAZOLE 40 MG TABLET.DR. PO SCH (10:28)
[2020-07-15] MEDS: cloNIDine HCL 0.1 MG TABLET PO PRN ×2 (10:28→12:45)
[2020-07-15] MEDS: FOLIC ACID 1 MG TABLET. PO SCH (10:28)
[2020-07-15] MEDS: GABAPENTIN 300 MG CAPSULE. PO SCH ×3 (10:30→21:17)
--- NOTE | 2020-07-15 10:36 | NUR ---
SS following up with discharge planning. SS reviewed pt chart and discussed with pt RN. Pt is currently on room air. Pt had EGD today. Ujliet from PAT team coming to meet with pt today to finalize referrals and provide resources. Discharge plan is to home when medically ready. SS will continue to follow for discharge planning.
--- NOTE | 2020-07-15 10:52 | PDOC ---
[employer] PROGRESS NOTE Date of Service DOS: DATE: 07/15/20 TIME: 10:46 Chief Complaint Chief Complaint Severe alcohol abuse Abdominal pain, n/v/hematemesis Anemia Thrombocytopenia Hypokalemia GENE Hypertension Depression Marijuana and tobacco use History of Present Illness History of Present Illness 07/15/2020 Patient seen and examined Patient is resting comfortably, no signs of asterixis but complains of weakness EGD being performed today Hgb is 11.2, potassium 2.8 Discussed with RN Chart reviewed 07/14/2020 Patient seen and examined, he was transferred from [facility] yesterday Patient is alert and oriented without asterixis Patient c/o abd pain Hbg stable at 12.9 COVID-19 pending for EGD per GI Discussed with RN Chart reviewed Vitals/I&O Vitals/I&O: Vital Signs Date Time Temp Pulse Resp B/P (MAP) Pulse Ox O2 Delivery O2 Flow Rate FiO2 07/15/20 10:28 84 179/117 07/15/20 10:02 20 98 Room Air 07/15/20 09:46 99.3 3 99.3 I & O 07/14/20 07/14/20 07/15/20 15:00 23:00 07:00 Intake Total 300 ml 3299 ml 1646 ml Output Total 800 ml 2830 ml 2300 ml Balance -500 ml 469 ml -654 ml Physical Exam General: Alert, Oriented X3, Cooperative, No acute distress Heart: Regular rate, Normal S1, Normal S2 Lungs: Clear Abdomen: Normal bowel sounds, Soft, Other (generalized abd pain ) Extremities: No clubbing, No cyanosis, No edema Skin: No rashes, No breakdown, No significant lesion Labs Labs: Laboratory Tests Test 07/14/20 11:15 07/14/20 18:15 07/15/20 04:00 SARS-CoV-2 Antigen (Rapid) Negative (NEGATIVE) White Blood Count 5.0 x10^3/uL (4.0-11.0) 4.4 x10^3/uL (4.0-11.0) Red Blood Count 3.90 x10^6/uL (4.30-5.70) 3.87 x10^6/uL (4.30-5.70) Hemoglobin 11.2 g/dL (13.0-17.5) 11.2 g/dL (13.0-17.5) Hematocrit 32.5 % (39.0-53.0) 31.8 % (39.0-53.0) Mean Corpuscular Volume 83 fL (79-100) 82 fL (79-100) Mean Corpuscular Hemoglobin 29 pg (25-35) 29 pg (25-35) Mean Corpuscular Hemoglobin Concent 35 g/dL (31-37) 35 g/dL (31-37) Red Cell Distribution Width 14.7 % (11.5-14.5) 14.7 % (11.5-14.5) Platelet Count 81 x10^3/uL (140-400) 70 x10^3/uL (140-400) Neutrophils (%) (Auto) 69 % (31-73) 61 % (31-73) Lymphocytes (%) (Auto) 26 % (24-48) 34 % (24-48) Monocytes (%) (Auto) 4 % (0-9) 4 % (0-9) Eosinophils (%) (Auto) 1 % (0-3) 2 % (0-3) Basophils (%) (Auto) 1 % (0-3) 1 % (0-3) Neutrophils # (Auto) 3.5 x10^3/uL (1.8-7.7) 2.6 x10^3/uL (1.8-7.7) Lymphocytes # (Auto) 1.3 x10^3/uL (1.0-4.8) 1.5 x10^3/uL (1.0-4.8) Monocytes # (Auto) 0.2 x10^3/uL (0.0-1.1) 0.2 x10^3/uL (0.0-1.1) Eosinophils # (Auto) 0.0 x10^3/uL (0.0-0.7) 0.1 x10^3/uL (0.0-0.7) Basophils # (Auto) 0.0 x10^3/uL (0.0-0.2) 0.0 x10^3/uL (0.0-0.2) Assessment and Plan Assessmemt and Plan ASSESSMENT Severe alcohol abuse Abdominal pain, n/v/hematemesis Anemia Thrombocytopenia Hypokalemia GENE Hypertension Depression Marijuana and tobacco use PLAN Discharge disposition pending Advance to regular diet Continue CIWA protocol Awaiting EGD results Protonix PO Continue IV Fluids Acetaminophen for pain PRN Banana bag daily Trend hemoglobin Trend potassium DVT prophylaxis Full Code Appreciate subspecialty input Comment Review of Relevant I have reviewed the following items nicolette (where applicable) has been applied. Medications: Current Medications Medications (Trade) Dose Ordered Sig/Cammie Route PRN Reason Start Time Stop Time Status Last Admin Dose Admin Acetaminophen (Tylenol) 650 mg PRN Q6HRS PRN PO MILD PAIN 1-3 07/14/20 14:45 07/14/20 14:51 Gabapentin (Neurontin) 300 mg TID PO 07/14/20 21:00 07/15/20 10:30 Sertraline HCl (Zoloft) 50 mg DAILY PO 07/15/20 09:00 07/15/20 10:28 Ringer's Solution 1,000 ml @ 50 mls/hr Q20H IV 07/15/20 07:00 07/15/20 18:59 07/15/20 08:47 Pantoprazole Sodium (Protonix) 40 mg DAILYAC PO 07/15/20 10:00 07/15/20 10:28 Justicifation of Admission Dx: Justifications for Admission: Justification of Admission Dx: Yes SIGIFREDO ANRANJO III DO Jul 15, 2020 10:52
[2020-07-15] MEDS: amLODIPine BESYLATE 10 MG TABLET PO SCH (12:38)
[2020-07-15 12:48] LABS: BASO % 1 % (0-3); EOS # 0.1 x10^3/uL (0.0-0.7); EOS % 2 % (0-3); HEMATOCRIT 35.5 % (39.0-53.0); HEMOGLOBIN 12.3 g/dL (13.0-17.5); LYMPH # 1.5 x10^3/uL (1.0-4.8); LYMPH % 27 % (24-48); MEAN CORPUSCULAR HEMOGLOBIN 29 pg (25-35); MEAN CORPUSCULAR HGB CONC 35 g/dL (31-37); MEAN CORPUSCULAR VOLUME 83 fL (79-100); MONO # 0.2 x10^3/uL (0.0-1.1); MONO % 4 % (0-9); NEUT # 3.6 x10^3/uL (1.8-7.7); NEUT % 67 % (31-73); PLATELET COUNT 86 x10^3/uL (140-400); RED BLOOD COUNT 4.29 x10^6/uL (4.30-5.70); RED CELL DISTRIBUTION WIDTH 14.7 % (11.5-14.5); WHITE BLOOD COUNT 5.4 x10^3/uL (4.0-11.0)
--- NOTE | 2020-07-15 13:52 | NUR ---
SS following up with discharge planning. Juliet from PAT team met with pt and provided pt with resources. Pt given referral to [facility] for outpatient ETOH treatment. SS will continue to follow for discharge planning.
[2020-07-15] MEDS: THIAMINE INJ 100 MG in IV DEXTROSE 5% 50 ML IV SCH (18:27)
[2020-07-15] MEDS ORDERED: GABAPENTIN 300 MG CAPSULE. PO ONE (18:30)
--- NOTE | 2020-07-15 19:00 | PDOC ---
F/U PHYSCH PROG NOTE Subjective: Young gentleman seen for routine follow-up. Progress is reviewed with nursing staff. He is requiring multiple Ativan for hitting CIWA. Reportedly having tremors. Stating, he is feeling worse than yesterday. Has history of DTs and withdrawal seizures when coming out of alcohol. States, he is worried about his anxiety which is through the roof. He is not able to concentrate. Oriented and alert. Mood is a still depressed and sad. Denies suicidal or homicidal thoughts. Denies auditory or visual hallucinations. No evidence of payton or hypomania. Objective: 12 point review of system is otherwise negative except for stated above. Vital Signs: Vital Signs Date Time Temp Pulse Resp B/P (MAP) Pulse Ox O2 Delivery O2 Flow Rate FiO2 07/15/20 15:00 98.1 97 19 168/106 (126) 97 Room Air 98.1 07/15/20 09:46 3 Labs: Laboratory Tests Test 07/15/20 04:00 07/15/20 12:00 White Blood Count 4.4 x10^3/uL (4.0-11.0) 5.4 x10^3/uL (4.0-11.0) Red Blood Count 3.87 x10^6/uL (4.30-5.70) L 4.29 x10^6/uL (4.30-5.70) L Hemoglobin 11.2 g/dL (13.0-17.5) L 12.3 g/dL (13.0-17.5) L Hematocrit 31.8 % (39.0-53.0) L 35.5 % (39.0-53.0) L Mean Corpuscular Volume 82 fL (79-100) 83 fL (79-100) Mean Corpuscular Hemoglobin 29 pg (25-35) 29 pg (25-35) Mean Corpuscular Hemoglobin Concent 35 g/dL (31-37) 35 g/dL (31-37) Red Cell Distribution Width 14.7 % (11.5-14.5) H 14.7 % (11.5-14.5) H Platelet Count 70 x10^3/uL (140-400) L 86 x10^3/uL (140-400) L Neutrophils (%) (Auto) 61 % (31-73) 67 % (31-73) Lymphocytes (%) (Auto) 34 % (24-48) 27 % (24-48) Monocytes (%) (Auto) 4 % (0-9) 4 % (0-9) Eosinophils (%) (Auto) 2 % (0-3) 2 % (0-3) Basophils (%) (Auto) 1 % (0-3) 1 % (0-3) Neutrophils # (Auto) 2.6 x10^3/uL (1.8-7.7) 3.6 x10^3/uL (1.8-7.7) Lymphocytes # (Auto) 1.5 x10^3/uL (1.0-4.8) 1.5 x10^3/uL (1.0-4.8) Monocytes # (Auto) 0.2 x10^3/uL (0.0-1.1) 0.2 x10^3/uL (0.0-1.1) Eosinophils # (Auto) 0.1 x10^3/uL (0.0-0.7) 0.1 x10^3/uL (0.0-0.7) Basophils # (Auto) 0.0 x10^3/uL (0.0-0.2) 0.0 x10^3/uL (0.0-0.2) Laboratory Tests 07/15/20 04:00 07/15/20 12:00 Medications: Current Medications Medications (Trade) Dose Ordered Sig/Cammie Start Time Stop Time Status Last Admin Dose Admin Acetaminophen (Tylenol Supp) 650 mg PRN Q4HRS PRN 07/13/20 19:15 Acetaminophen (Tylenol) 650 mg PRN Q6HRS PRN 07/14/20 14:45 07/14/20 14:51 650 MG Albuterol Sulfate (Ventolin Neb Soln) 2.5 mg PRN Q4HRS PRN 07/13/20 19:15 Amlodipine Besylate (Norvasc) 10 mg DAILY 07/15/20 12:00 07/15/20 12:38 10 MG Clonidine HCl (Catapres Tts-2) 1 patch WEEKLY@2100 07/15/20 21:00 Clonidine HCl (Catapres) 0.1 mg PRN Q1HR PRN 07/13/20 19:30 07/15/20 12:45 0.1 MG Digoxin (Lanoxin) 500 mcg 1X ONCE 07/14/20 02:45 07/14/20 02:42 DC Diphenhydramine HCl (Benadryl) 25 mg PRN Q15MIN PRN 07/13/20 19:30 Docusate Sodium (Colace) 100 mg PRN BID PRN 07/13/20 19:15 Folic Acid (Folic Acid) 1 mg DAILY 07/14/20 09:00 07/15/20 10:28 1 MG Gabapentin (Neurontin) 600 mg 1X ONCE 07/15/20 18:30 07/15/20 18:31 DC 07/15/20 18:34 600 MG Haloperidol Lactate (Haldol Inj) 5 mg PRN Q4HRS PRN 07/13/20 19:30 Lorazepam (Ativan Inj) 4 mg PRN Q15MIN PRN 07/13/20 19:30 UNV Lorazepam (Ativan) 1 mg PRN BID PRN 07/13/20 22:30 07/15/20 12:50 1 MG Metoprolol Tartrate (Lopressor Vial) 5 mg PRN Q20MIN PRN 07/13/20 22:30 07/15/20 09:14 5 MG Multivitamins 10 ml/Thiamine HCl 100 mg/Folic Acid 1 mg/Sodium Chloride 1,011.2 ml @ 125 mls/ hr 1X ONCE 07/13/20 20:00 07/14/20 04:05 DC 07/13/20 22:00 125 MLS/HR Ondansetron HCl (Zofran) 4 mg PRN Q4HRS PRN 07/13/20 19:15 Pantoprazole Sodium (Protonix) 40 mg DAILYAC 07/15/20 10:00 07/15/20 10:28 40 MG Pantoprazole Sodium 80 mg/ Sodium Chloride 100 ml @ 10 mls/hr Q10H 07/13/20 19:30 07/15/20 09:53 DC 07/14/20 22:17 10 MLS/HR Potassium Chloride/Water 100 ml @ 100 mls/hr Q1H 07/14/20 09:00 07/14/20 12:59 DC 07/14/20 14:26 100 MLS/HR Propofol (Diprivan) 200 mg STK-MED ONCE 07/15/20 09:31 07/15/20 09:32 DC Ringer's Solution 1,000 ml @ 50 mls/hr Q20H 07/15/20 07:00 07/15/20 18:59 07/15/20 08:47 50 MLS/HR Sertraline HCl (Zoloft) 50 mg DAILY 07/15/20 09:00 07/15/20 10:28 50 MG Sodium Chloride 1,000 ml @ 150 mls/hr Q6H40M 07/13/20 19:15 07/15/20 12:53 DC 07/15/20 05:43 150 MLS/HR Sodium Chloride (Normal Saline Flush) 3 ml QSHIFT PRN 07/13/20 19:15 Thiamine Mononitrate (Vitamin B-1) 100 mg DAILY 07/14/20 09:00 07/15/20 18:23 DC 07/15/20 10:28 100 MG Thiamine HCl 100 mg/Dextrose 51 ml @ 102 mls/hr TID 07/15/20 18:27 07/15/20 18:27 102 MLS/HR Physical Exam: Mental Status Exam: Young gentleman appears as a stated age, fairly groomed fairly nourished Cooperative but anxious and in distress Fully alert and oriented Thought processes mostly goal-directed Denies auditory or visual hallucinations No abnormal perception noted Denies suicidal or homicidal thoughts Mood is depressed and anxious Affect is dysthymic Insight is limited judgment is limited impulse control is fair. Attention span and concentration gets distracted easily Recent and remote memory intact Physical Exam: Refer to Physician's note. 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 His mental health issues appear to be complicated by his consistent alcohol use. However, he has genetic predisposition to have alcohol use problems, depression and anxiety. He is in agreement to restart medications and interested in alcohol rehab. Patient is at risk of having DTs or withdrawal seizures. Having jerking movements of his right arm. Will increase gabapentin, and give IV thiamine. Plan: Zoloft 50 mg once daily for depression and anxiety. Increase gabapentin to 600mg TID to prevent complicated alcohol withdrawals and alcohol craving Change oral thiamine to IV thiamine 3 times daily to prevent encephalopathy. In case of altered mental status, DTs transfer to higher level of care. Strongly recommending alcohol rehab and requesting social work specialist for inpatient alcohol rehab or RADAC screen. Educated regarding adverse effects of alcohol on mental and physical health. Psychoeducation provided Risk benefits, alternatives of the treatment are discussed. He is in agreement with plan and voiced understanding. Adverse drug reaction of the medications are also discussed including black box warning. Monitor for symptomatology, safety, and adverse drug reaction. Will adjust medications accordingly. Thank you for involving in patient care. ALPESH ESCALONA MD Jul 15, 2020 19:00
[2020-07-15] MEDS ORDERED: cloNIDine TTS-2 1 PATCH PATCH TD SCH (21:00)
[2020-07-16] MEDS: METOPROLOL TARTRATE 5 MG/5 ML VIAL. IVP PRN (02:42)
[2020-07-16 03:00] VITALS: BP 181/119
[2020-07-16 03:34] VITALS: BP 161/103
[2020-07-16 05:07] LABS: BASO % 1 % (0-3); EOS # 0.1 x10^3/uL (0.0-0.7); EOS % 3 % (0-3); HEMATOCRIT 34.8 % (39.0-53.0); HEMOGLOBIN 12.1 g/dL (13.0-17.5); LYMPH # 1.8 x10^3/uL (1.0-4.8); LYMPH % 34 % (24-48); MEAN CORPUSCULAR HEMOGLOBIN 29 pg (25-35); MEAN CORPUSCULAR HGB CONC 35 g/dL (31-37); MEAN CORPUSCULAR VOLUME 82 fL (79-100); MONO # 0.3 x10^3/uL (0.0-1.1); MONO % 5 % (0-9); NEUT % 58 % (31-73); PLATELET COUNT 83 x10^3/uL (140-400); RED BLOOD COUNT 4.23 x10^6/uL (4.30-5.70); WHITE BLOOD COUNT 5.2 x10^3/uL (4.0-11.0)
[2020-07-16 05:25] LABS: CALCIUM 8.3 mg/dL (8.5-10.1); GFR 84.1
[2020-07-16 05:27] LABS: POTASSIUM 2.7 mmol/L (3.5-5.1)
[2020-07-16] MEDS ORDERED: POTASSIUM CHLORIDE 20 MEQ TABLET.ER. PO ONE ×2 (06:00→12:00)
[2020-07-16] MEDS: PANTOPRAZOLE 40 MG TABLET.DR. PO SCH ×2 (06:10→08:50)
[2020-07-16 06:34] VITALS: BP 179/119
[2020-07-16] MEDS: cloNIDine HCL 0.1 MG TABLET PO PRN (06:39)
[2020-07-16 07:00] VITALS: BP 161/109
[2020-07-16] MEDS: SERTRALINE 50 MG TABLET. PO SCH (08:50)
[2020-07-16 08:51] VITALS: BP 171/113
[2020-07-16] MEDS: FOLIC ACID 1 MG TABLET. PO SCH (08:51)
[2020-07-16] MEDS: amLODIPine BESYLATE 10 MG TABLET PO SCH (08:51)
[2020-07-16] MEDS: GABAPENTIN 300 MG CAPSULE. PO SCH (08:51)
[2020-07-16] MEDS: THIAMINE INJ 100 MG in IV DEXTROSE 5% 50 ML IV SCH (08:52)
--- NOTE | 2020-07-16 11:00 | NUR ---
spoke to dr morejon about patients potassium level. patient received one dose this am and will receive another at lunch. no orders to recheck potassium. will continue to monitor patient.
--- NOTE | 2020-07-16 12:29 | DS ---
DATE OF DISCHARGE: 07/16/2020 ADMISSION DIAGNOSES: Alcohol withdrawal and gastrointestinal bleed. DISCHARGE DIAGNOSES: Resolving alcohol withdrawal, resolving gastrointestinal bleed. HOSPITAL COURSE: The patient is a pleasant middle-aged male who drinks Bacardi rum daily. He presented with alcohol withdrawal and some possible GI bleed. He was admitted. We trended his labs. We consulted GI. We gave him alcohol withdrawal protocol. Today, I saw and examined him, I got him up and walking. He is slightly unsteady on his feet, but not too bad. He was able to walk to the bathroom a couple of times. Heart tones are normal. Lungs are clear. Overall, he looks great. We plan to discharge to home. I gave him a prescription for some p.r.n. Xanax. DISPOSITION: Home. ACTIVITY: As tolerated. DIET: Low sodium. MEDICATIONS: Please see the MRAD. TOTAL TIME: 33 minutes. KULWINDERL Martinez NARANJO DO DR: VANDANA/ricki JOB#: [id number] / [id number]
[2020-07-16] MEDS ORDERED: GABA600T7 PO (13:08)
[2020-07-16] MEDS ORDERED: AMLO10TA4 PO (13:13)
[2020-07-16] MEDS ORDERED: CLON1PAT6 TD (13:14)
[2020-07-16] MEDS ORDERED: SERT50TA PO (13:14)
[2020-07-16] MEDS ORDERED: PANT20TA2 PO (13:14)
[2020-07-16] MEDS ORDERED: POTA20TA4 PO (13:15)
[2020-07-16] MEDS ORDERED: ALPR0.5T PO (13:15)
--- NOTE | 2020-07-16 14:29 | NUR ---
patients discharge instructions given to patient. patient informed to fill prescriptions. patients tele monitor off and both IVs out. patient stable at time of discharge. patient informed to follow up with primary care physician this week. patient has no questions at time of discharge. patient stable at time of discharge.
[2020-07-18] MEDS ORDERED: THIAMINE INJ 100 MG in IV DEXTROSE 5% 50 ML IV SCH (09:00)
--- NOTE | 2020-07-21 12:21 | DS ---
DATE OF DISCHARGE: 07/16/2020 HOSPITAL COURSE: The patient is a pleasant middle-aged male who drinks too much. He was admitted. We consulted GI. He did have a possible GI bleed, but it was suspected that he probably has had a Susanne-Santana tear. We gave him alcohol withdrawal protocol. Over the next few days, he did well. We discharged to home with close outpatient followup. DISPOSITION: Home. ACTIVITY: As tolerated. DIET: Low sodium. MEDICATIONS: Please see the MRAD. TOTAL TIME: 34 minutes. KULWINDERL Martinez NARANJO DO DR: VANDANA/ricki JOB#: [id number] / [id number]
== END 2020-07-16 14:30 | disposition home or self-care (01) | DRG 378 ==
LOC: 2 NORTH 18:40
PROVIDERS: ADMIT Family Medicine; ATTEND Family Medicine
PROC: 0DJ08ZZ Inspection of Upper Intestinal Tract, Via Natural or Artificial Opening Endoscopic (ICD-10-PCS; principal; 2020-07-15 09:00)
DX: K29.21 Alcoholic gastritis with bleeding (principal); E44.0 Moderate protein-calorie malnutrition; D62 Acute posthemorrhagic anemia; F10.239 Alcohol dependence with withdrawal, unspecified; F33.2 Major depressive disorder, recurrent severe without psychotic features; N17.9 Acute kidney failure, unspecified; D69.6 Thrombocytopenia, unspecified; F10.229 Alcohol dependence with intoxication, unspecified; E87.6 Hypokalemia; E66.01 Morbid (severe) obesity due to excess calories; F17.210 Nicotine dependence, cigarettes, uncomplicated; Z20.828 Contact with and (suspected) exposure to other viral communicable diseases; F41.1 Generalized anxiety disorder; G47.00 Insomnia, unspecified; I10 Essential (primary) hypertension; K76.0 Fatty (change of) liver, not elsewhere classified; Y90.1 Blood alcohol level of 20-39 mg/100 ml; Z82.49 Family history of ischemic heart disease and other diseases of the circulatory system; Z68.33 Body mass index [BMI] 33.0-33.9, adult; Z81.8 Family history of other mental and behavioral disorders; Z81.1 Family history of alcohol abuse and dependence
CPT/HCPCS: 36415; 43235; 80048; 80053; 80307; 85025; 87426; 94760; C9113; J2060; J2704; J3411; J3480; J3490; J7030; J7060; J7120; G0378; U0003-CS